=== PATIENT | male | born 2000 | race African-American/Black ===

== ENCOUNTER 2022-04-29 11:50 | Emergency (ER) | payer BC, SELFPAY ==
[2022-04-29 12:12] VITALS: BP 139/87; PULSE 76; RESP 16; TEMP 36.8; O2SAT 100
--- NOTE | 2022-04-29 13:04 | ED.EAR ---
HPI - Ear Problem General Chief complaint: Ear Stated complaint: ear pain Time Seen by Provider: 04/29/22 12:58 Source: patient Mode of arrival: ambulatory Limitations: no limitations History of Present Illness HPI Narrative: 22-year-old otherwise healthy here with complaints of pain and swelling to his left ear lobule for past few days , he has no recent ear piercing , no trauma. Denies any fever chills MD Complaint: ear pain Location: left ear Duration: constant Severity: mild Relieving factors: nothing Exacerbating factors: nothing Discharge from ear: Reports no Treatment prior to arrival: none Review of Systems Review of Systems: All systems reviewed & are unremarkable except as noted in HPI and below Constitutional: Constitutional: Reports no additional constitutional complaints Eyes: Eyes: Reports no additional eye complaints ENT: Reports system reviewed and no additional complaints, except as documented Cardiovascular: Cardiovascular: Reports no additional cardiovascular complaints Respiratory: Respiratory: Reports no additional respiratory complaints Musculoskeletal: Musculoskeletal: Reports no additional musculoskeletal complaints Integumentary/Breasts: Skin/Breast: Reports system reviewed and no additional complaints, except as docu Exam Narrative: GENERAL: Well-appearing, well-nourished, and in no acute distress. HEAD: Normocephalic, atraumatic. EYES: PERRLA and EOMI. ENT: Nares clear, no rhinorrhea or epistaxis. Mucous membranes moist. Examination of the left vdyfekz-iyns-bax shows a small swelling no drainable abscess NECK: Supple. CHEST: Clear to auscultation. No respiratory distress. HEART: Regular rate and rhythm. No murmur heard. Normal peripheral pulses.. EXTREMITIES: Normal range of motion. No edema. SKIN: Warm, dry, no rash. NEURO: No focal deficits. Alert and oriented x3. PSYCH: Normal mood and affect. Course Vital Signs Vital signs: Vital Signs Temperature 36.8 C 04/29/22 12:12 Pulse Rate 76 04/29/22 12:12 Respiratory Rate 16 04/29/22 12:12 Blood Pressure 139/87 04/29/22 12:12 Pulse Oximetry 100 04/29/22 12:12 Temperature 36.8 C 04/29/22 12:12 Pulse Rate 76 04/29/22 12:12 Respiratory Rate 16 04/29/22 12:12 Blood Pressure 139/87 04/29/22 12:12 Pulse Oximetry 100 04/29/22 12:12 Medical Decision Making MDM Narrative Medical decision making narrative: 22-year-old with no major medical problems has pain and swelling to the left ear lobule differential is early abscess versus keloid formation. Advised him to take antibiotic and follow-up with the ear nose throat doctor. Vital Signs Vital Signs: Vital Signs Temperature 36.8 C 04/29/22 12:12 Pulse Rate 76 04/29/22 12:12 Respiratory Rate 16 04/29/22 12:12 Blood Pressure 139/87 04/29/22 12:12 Pulse Oximetry 100 04/29/22 12:12 Temperature 36.8 C 04/29/22 12:12 Pulse Rate 76 04/29/22 12:12 Respiratory Rate 16 04/29/22 12:12 Blood Pressure 139/87 04/29/22 12:12 Pulse Oximetry 100 04/29/22 12:12 Discharge Plan Discharge Clinical Impression: Otitis externa Patient Disposition: Home, Self-Care Condition: Stable Instructions: Cellulitis (ED) Additional Instructions: Take antibiotic as prescribed, warm compress follow-up with ear nose throat doctor. Prescriptions: New doxycycline hyclate 100 mg tablet 100 mg PO BID Qty: 14 0RF Follow-up/Referrals: PHYSICIAN,MULTIMEDIA PROGRAMMER [Primary Care Provider] - Hira Frias MD [Physician] - Time of Disposition: 13:19
== END 2022-04-29 15:07 | disposition home or self-care (01) ==
LOC: ANHED 13:39
PROVIDERS: Emergency Provider Family Medicine
DX: H60.92 Unspecified otitis externa, left ear (principal)
CPT/HCPCS: 99283

== ENCOUNTER 2022-06-04 06:35 | Day surgery (SDC) | payer BC, SELFPAY ==
[2022-05-28 15:24] VITALS: BMI 22.4
--- NOTE | 2022-05-28 15:26 | SUR.PREOP ---
Report to the Outpatient Waiting Room, entrance under the green pavilion located off [facility], at time _0730 on date _06/04/22 . Planned Procedure Time: _929 . Time changes happen often and if your time is changed the preop area will call you the afternoon before. - You and your visitor will be asked to self-screen and do not enter if you have any COVID symptoms. - Only one visitor is requested with a max of two and NO children visitors are allowed at this time. - The patient visitor may be requested to leave or wait in car when not with patient due to distancing restrictions. - A mask is optional within the hospital. Patients may have clear liquids (water, carbonated beverages, clear teas, apple juice) until 3 hours prior to surgery with a maximum of 20 ounces. - No food from midnight until time of surgery - Infants may have breast milk until 4 hours before surgery, infant formula 6 hours prior to surgery. - Children will be allowed to drink immediately following surgery. If applicable, please bring a bottle or sippy cup to assist with drinking. Juice, water, soda, and popsicles are readily available. For infants on formula, please bring formula the day of surgery. Pacifiers are allowed. Take the following medications with a SIP of water the morning of surgery: n/a Medications to discontinue per physician n/a Date to take last dose__n/a Please no make-up, nail bengali, hairspray, perfume, deodorant, or body powder the day of surgery. No jewelry (including any body piercings) or valuables the day of surgery, leave them at home. Please take a shower or bath the night before, or the morning of, surgery with an antibacterial soap. Wear comfortable, loose fitting clothing. Children are encouraged to wear pajamas. - Jewelry must be removed prior to entering the operating room. Rings and piercings that are not removed may be cut off. - The hospital will not accept responsibility for valuables. - Please leave all valuables, including medications, at home the day of surgery. If you are going home after surgery, a licensed airport driver must drive you home. - NO public transportation without another adult if you receive anesthesia. - We recommend that an adult stay with you for 24 hours following discharge. - We also recommend that you do not drive, make important decision, drink alcoholic beverages, or take any drugs that were not prescribed by your health care provider for at least 24 hours after your discharge time. For Pediatric surgeries, we recommend two adults accompany the child home. Follow any additional instructions given to you from your surgeon. If you or anyone in your household have experienced Covid symptoms in the past week, please notify your surgeon or the nurse liaison at the phone number below for possible testing. Telephone instructions given to nina hicks and asked if any additional questions and then verbalized understanding. Patient advised to call surgeon office or pre surgery nurse liaison [phone] if any additional questions.
--- NOTE | 2022-06-03 13:50 | PM.IMHP ---
H&P: HPI History of Present Illness Date/Time: 06/03/22 13:50 Chief Complaint: left earlobe cyst /lesion Narrative: planned surgical procedure Review of Systems Review of Systems: All systems reviewed & are unremarkable except as noted in HPI and below [facility] Social History Social History (Updated 05/01/22 @ 14:59 by Trina Aguila [facility]) Smoking status: Never smoker Alcohol intake: never Substance use: never Lack of Transportation: No Lack of Food: Never True Current Housing: I Have Housing Concerned About Future Housing: No Difficulty Paying Gas/Electric Bills: No Difficulty Paying for Meds: No Currently Unemployed: No Education: High School Diploma/GED Difficulty w/ Childcare or Family Care: No Living arrangements: with roommate(s) Spiritual care concerns: No Meds Home Medications and Allergies Home Medications Medication Instructions Recorded Confirmed Type No Home Medications 05/28/22 05/28/22 History Allergies Allergy/AdvReac Type Severity Reaction Status Date / Time No Known Allergies Allergy Unverified 05/28/22 15:10 Exam Narrative: left earlobe cyst Assessment and Plan Assessment and plan (1) Ear cysts: Code(s): Q18.1 - Preauricular sinus and cyst Status: Acute Assessment and Plan: plan excision of left earlobe cyst. LMA okay. Soft tissue instruments required small bipolar. Risks were discussed including keloid formation re-formation of cyst infection damage to surrounding structures loss of earlobe. Patient voiced understanding and agreed.
[2022-06-04] VITALS (8 sets, daily range): BP systolic 109–137; BP diastolic 58–86; PULSE 65–89; RESP 14–18; TEMP 36.6–36.8; O2SAT 99–100
--- NOTE | 2022-06-04 07:17 | WPDHPUPDATE1 ---
History and Physical Update Update Date/Time: 06/04/22 07:17 History and Physical has been reviewed, including an updated exam of the patient. There are NO changes in the patient's condition. Risks, benefits, and alternatives have been discussed and questions answered. Patient agrees to proceed with procedure.
--- NOTE | 2022-06-04 07:20 | WPDANESEPPF ---
Anes - Initial Pre Proc Eval Procedure: Operation Date: 06/04/22 09:30 Proposed Procedures p Excision Cyst of Left Earlobe - Hira Frias MD Date/Time: 06/04/22 07:20 Surgeon: Hira Frias MD Pre Op Diagnosis: Left Earlobe Cyst Patient Data Age: 22 Gender: M Height: 1.8 m Weight: 72.72 kg Allergies Allergy/AdvReac Type Severity Reaction Status Date / Time No Known Allergies Allergy Unverified 05/28/22 15:10 Home Medications Medication Instructions Recorded Confirmed Type No Home Medications 05/28/22 05/28/22 History Patient hx anesthesia problems: none Family hx anesthesia problems: none Results Review: All pre-operative results and documents have been reviewed as part of the pre-operative evaluation. [facility] Social History Social History (Updated 05/01/22 @ 14:59 by Trina Aguila [facility]) Smoking status: Never smoker Alcohol intake: never Substance use: never Lack of Transportation: No Lack of Food: Never True Current Housing: I Have Housing Concerned About Future Housing: No Difficulty Paying Gas/Electric Bills: No Difficulty Paying for Meds: No Currently Unemployed: No Education: High School Diploma/GED Difficulty w/ Childcare or Family Care: No Living arrangements: with roommate(s) Spiritual care concerns: No Anes - Eval Final PreProcedure Day of Procedure 06/04/22 07:20 Patient weight: normal Heart: regular rate and rhythm Lungs: clear to auscultation and normal air movement Airway: Mallampati scale class II Neurological: alert and oriented Last oral intake: >/= 8 hours ASA classification: I Emergent: no Anesthetic plan: proceed Anesthesia type and monitoring: general GIVS and LMA Results Review: All pre-operative results and documents have been reviewed as part of the pre-operative evaluation. Informed Consent: The patient's anesthetic plan and its attendant risks and benefits were discussed with the patient/family/POA. Questions were solicited and answers provided to the satisfaction of the patient/family/POA.
[2022-06-04] MEDS: LACTATED RINGERS 1,000 ML 30 ML IV CONT (07:40)
[2022-06-04] MEDS: ceFAZolin 2 GM/D5W 50 ML 2 GM/50 ML BAG IVPB (08:56)
[2022-06-04] MEDS: NEOMYCIN/POLYMYXIN B/PRAMOXINE 15 GM CREAM 1 APPLIC TOPICAL (09:45)
--- NOTE | 2022-06-04 10:23 | W.PM.PROC2 ---
Procedure Note - Detailed Date of Procedure 06/04/22 Pre-op Diagnosis Left Earlobe Cyst/Fibroma Post-op Diagnosis Same Procedure Performed excision of left ear lesion earlobe Surgeon Hira Frias MD Anesthesia General ( LMA) Indications see above Findings very large about 1.5 cm cross fibroma/ internal keloid sent for pathologic analysis defects and skin on both sides as it was connected from the anterior portion mild cosmetic deformity Description of Procedure patient identified consent verified in preop. Patient brought operating room. Time-out performed. General anesthesia induced LMA secured. Patient prepped draped position 2nd time-out performed. Ellipse incision made around lesion on the posterior aspect of the earlobe. At this point was discovered that it was a very very large fibroma encompassing the majority of the earlobe. Dissected around the could not be freed from the anterior skin so portion of the anterior skin had to be taken as well. Copiously irrigated really no bleeding. Fibroma sent for pathologic / lesion sent for pathologic analysis. Deep layers closed with 2 interrupted 4 0 Vicryl sutures. Back layer closed with interrupted chromic sutures. Anterior [place] with 5 0 running fast. Complication be minimal cosmetic deformity which should settle in be non noticeable. Blood loss essentially 0. Patient tolerated the procedure well. Care the patient given Anesthesiology patient taken to PACU. Estimated Blood Loss -1.0 Drains No Packing No Pathology Yes Complications No immediate complications Condition Stable
[2022-06-04] MEDS: oxyCODONE HCL (*CRX) 5 MG TAB IR PO (11:37)
== END 2022-06-04 11:45 | disposition home or self-care (01) ==
PROVIDERS: Visit Provider Otolaryngology
PROC: (CPT 11442; principal; 2022-06-04 09:30)
DX: L91.0 Hypertrophic scar (principal); L90.5 Scar conditions and fibrosis of skin
CPT/HCPCS: 11442; 12051; 88305; A9270; J0690; J1100; J2250; J2405; J2704; J3010; J7120